=== PATIENT | female | born 1950 | race Native Hawaiian/Other Pacific Islander ===

== ENCOUNTER 2016-10-28 06:05 | Day surgery (SDC) | payer MEDICAID ==
[2016-10-28 06:55] VITALS: BMI 27.3
[2016-10-28] MEDS ORDERED: Propofol 10 mg/ml Inj (20 ML) ONE (08:00)
[2016-10-28 08:44] VITALS: O2SAT 100
[2016-10-28 09:33] VITALS: BP 126/75; PULSE 67; RESP 14; TEMP 97.2
== END 2016-10-28 09:28 | disposition home or self-care (01) ==
LOC: C.ENDO 06:05
PROVIDERS: ATTEND Specialist
DX: Z12.11 Encounter for screening for malignant neoplasm of colon (principal); K64.8 Other hemorrhoids; I10 Essential (primary) hypertension; E11.9 Type 2 diabetes mellitus without complications; E78.5 Hyperlipidemia, unspecified; Z79.84 Long term (current) use of oral hypoglycemic drugs; Z79.82 Long term (current) use of aspirin; Z79.899 Other long term (current) drug therapy

== ENCOUNTER 2016-11-11 12:09 | Emergency (ER) | payer MEDICAID ==
[2016-11-11 12:09] VITALS: BMI 27.3
[2016-11-11 12:21] VITALS: TEMP 98
--- NOTE | 2016-11-11 14:10 | C.PDOC ---
History Of Present Illness 66 y/o female presents to the ED with complaints of new onset right eye redness x3 days. Pt denies any trauma. Denies pain, discharge, foreign body sensation, vision change, light sensitivity or any other complaints. NEW ONSET REDNESS R EYE X 3 DAYS. NO TRAUMA. NO PAIN, DC, FB SENSATION, VISION CHANGE OR LIGHT SENSITIVITY EXAM NAD +R SUBCONJ HEMORRHAGE. NO HYPHEMA. PERIORWNL Time Seen by Provider: 11/11/16 13:41 Chief Complaint (Nursing): Eye Problem History Per: Patient History/Exam Limitations: no limitations Onset/Duration Of Symptoms: Days Current Symptoms Are (Timing): Still Present Injury To Eye?: No Severity: Mild Wears Contact Lens?: No Associated Symptoms: denies: Decreased Vision, FB Sensation, Discharge From Eye Recent travel outside of the [place]: No Past Medical History Reviewed: Historical Data, Nursing Documentation, Vital Signs Vital Signs: Last Vital Signs Temp 98 F 11/11/16 12:19 Pulse 89 11/11/16 12:19 Resp 20 11/11/16 12:19 BP 162/88 H 11/11/16 12:19 Pulse Ox 98 11/11/16 14:12 - Medical History PMH: 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 Negative for: Pain, Vision Change Physical Exam - Physical Exam Appears: Non-toxic, No Acute Distress Skin: Warm, Dry, No Rash Head: Atraumatic, Normacephalic Eye(s): bilateral: PERRL, EOMI, right: Other (Subconjunctival hemorrhage. No hyphema. Periorbital WNL), left: Normal Inspection Neurological/Psych: Oriented x3, Normal Speech, Normal Cognition ED Course And Treatment O2 Sat by Pulse Oximetry: 98 (room air) Pulse Ox Interpretation: Normal Disposition Counseled Patient/Family Regarding: Diagnosis, Need For Followup - Disposition Referrals: [facility] [Outside] [facility] [Outside] Disposition: HOME/ ROUTINE Disposition Time: 14:11 Condition: GOOD Instructions: Subconjunctival Hemorrhage (ED) Forms: [facility] (Tajik), Work Excuse - Clinical Impression Clinical Impression: Subconjunctival hemorrhage - Scribe Statement The provider has reviewed the documentation as recorded by the Phi Howard Provider Attestation: All medical record entries made by the Phi were at my direction and personally dictated by me. I have reviewed the chart and agree that the record accurately reflects my personal performance of the history, physical exam, medical decision making, and the department course for this patient. I have also personally directed, reviewed, and agree with the discharge instructions and disposition.
[2016-11-11 14:19] VITALS: BP 151/89; PULSE 71; RESP 18
[2016-11-11 14:22] VITALS: O2SAT 98
== END 2016-11-11 14:19 | disposition home or self-care (01) ==
LOC: C.ER 12:09
DX: H11.31 Conjunctival hemorrhage, right eye (principal)

== ENCOUNTER 2018-02-01 10:20 | Emergency (ER) | payer MEDICAID ==
[2018-02-01 10:20] VITALS: BMI 27.6
[2018-02-01 10:26] VITALS: BP 146/77; PULSE 86; RESP 18; TEMP 98.5; O2SAT 98
--- NOTE | 2018-02-01 10:43 | C.PDOC ---
History Of Present Illness 67 Y/O FEMALE PRESENTS TO ED WITH C/O CHEST CONGESTION, COUGH X 5 DAYS. PATIENT ADMITS TO SUBJECTIVE FEVER AND DENIES BIRCH, SOB, CP, OTHER ASSOCIATED SYMPTOMS. AT ED PATIENT CURRENTLY ASYMPTOMATIC. 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 Negative for: Chills ENT: Negative for: Ear Pain, Throat Pain Cardiovascular: Negative for: Chest Pain Respiratory: Positive for: Cough. Negative for: Shortness of Breath Gastrointestinal: Negative for: Nausea, Vomiting Physical Exam - Physical Exam Appears: Non-toxic, No Acute Distress Skin: Warm, Dry, No Rash Head: Atraumatic, Normacephalic Eye(s): bilateral: Normal Inspection Ear(s): Bilateral: Normal Oral Mucosa: Moist Throat: Normal, No Erythema, No Exudate Neck: Normal ROM, Supple Cardiovascular: Rhythm Regular Respiratory: Normal Breath Sounds, No Rales, No Rhonchi, No Wheezing Gastrointestinal/Abdominal: Soft, No Tenderness, No Guarding, No Rebound Neurological/Psych: Oriented x3, Normal Speech, Normal Cognition ED Course And Treatment O2 Sat by Pulse Oximetry: 98 (RA) Pulse Ox Interpretation: Normal Disposition Counseled Patient/Family Regarding: Diagnosis, Need For Followup, Rx Given - Disposition Referrals: YOUR,PMD [Other] Disposition: HOME/ ROUTINE Disposition Time: 10:42 Condition: GOOD Prescriptions: Azithromycin 250 mg PO DAILY #6 tab Benzonatate [Tessalon Perles] 200 mg PO TID PRN #15 sgl PRN Reason: Cough Instructions: Acute Bronchitis, Adult (DC) Forms: [facility] [employer] [facility] (Amharic) - Clinical Impression Clinical Impression: Bronchitis - Scribe Statement The provider has reviewed the documentation as recorded by the Asyaibdolores Elliott All medical record entries made by the Asyaibdolores were at my direction and personally dictated by me. I have reviewed the chart and agree that the record accurately reflects my personal performance of the history, physical exam, medical decision making, and the department course for this patient. I have also personally directed, reviewed, and agree with the discharge instructions and disposition.
== END 2018-02-01 10:51 | disposition home or self-care (01) ==
LOC: C.ER 10:20
DX: J40 Bronchitis, not specified as acute or chronic (principal)